=== PATIENT | male | born 1990 | race Caucasian/White ===

== ENCOUNTER 2018-03-23 23:07 | Emergency (ER) | payer MEDICAID ==
[2018-03-23 23:28] VITALS: BP 155/85; PULSE 75; RESP 16; TEMP 99.3; O2SAT 99
--- NOTE | 2018-03-23 23:35 | C.PDOC ---
History Of Present Illness 27-year-old male presents to the ED with complaints of pain near the outer left ear for the past week. Patient states he had a pimple there, his girlfriend stuck a needle in it, and some pus came out. Area is still swollen, painful, and hard, prompting him to come in for evaluation. Additionally, patient is complaining of right-sided hip and thigh pain, which he attributes to doing squats. Denies any fall or trauma. Pain worsens with ambulation or movement. Otherwise patient has no numbness, tingling, or weakness. Time Seen by Provider: 03/23/18 23:24 Chief Complaint (Nursing): ENT Problem History Per: Patient History/Exam Limitations: no limitations Onset/Duration Of Symptoms: Days Current Symptoms Are (Timing): Still Present Past Medical History Reviewed: Historical Data, Nursing Documentation, Vital Signs Vital Signs: Last Vital Signs Temp 99.3 F 03/23/18 23:24 Pulse 75 03/23/18 23:24 Resp 16 03/23/18 23:24 BP 155/85 H 03/23/18 23:24 Pulse Ox 99 03/23/18 23:35 - Medical History PMH: No Chronic Diseases Surgical History: No Surg Hx Family History: States: No Known Family Hx - Social History Hx Tobacco Use: Yes Hx Alcohol Use: No Hx Substance Use: No - Immunization History Hx Tetanus Toxoid Vaccination: Yes (2 years ago) Review Of Systems Except As Marked, All Systems Reviewed And Found Negative. Constitutional: Negative for: Fever, Chills ENT: Positive for: Other (pain to outer left ear). Negative for: Ear Discharge , Throat Pain Respiratory: Negative for: Shortness of Breath Musculoskeletal: Positive for: Leg Pain (right hip/outer thigh pain) Neurological: Negative for: Weakness, Numbness, Incoordination Physical Exam - Physical Exam Appears: Well, Non-toxic, No Acute Distress Skin: Warm, Dry, No Rash Head: Atraumatic, Normacephalic Eye(s): bilateral: Normal Inspection Ear(s): Left: Other (mildly tender, firm nodule to the left outer pinna, no fluctuance or erythema), Right: Normal Oral Mucosa: Moist Neck: Normal ROM Chest: Symmetrical Cardiovascular: Rhythm Regular, No Murmur Respiratory: Normal Breath Sounds, No Rales, No Rhonchi, No Wheezing Gastrointestinal/Abdominal: Soft, No Tenderness, No Distention Back: Normal Inspection, No Vertebral Tenderness, No Paraspinal Tenderness Male Genital: Normal Inspection, No Testicular Tenderness, No Testicular Swelling, Inguinal Tenderness (right-sided) Extremity: Normal ROM, Tenderness (to right inner thigh and inguinal area, no hip tenderness), No Deformity, No Swelling Neurological/Psych: Oriented x3, Normal Speech ED Course And Treatment O2 Sat by Pulse Oximetry: 99 (RA) Pulse Ox Interpretation: Normal Medical Decision Making Medical Decision Making: Impression: Right groin/thigh muscle strain, Nodule of left ear Dispo: Patient will be discharged home with cephalexin for the ear nodule, and motrin/flexeril for the muscle strain. Disposition Counseled Patient/Family Regarding: Diagnosis, Need For Followup, Rx Given - Disposition Referrals: Wilton Martinez MD [Staff Provider] - Don Porter MD [Staff Provider] - Disposition: HOME/ ROUTINE Disposition Time: 23:32 Condition: STABLE Additional Instructions: Take antibiotic for ear problem and follow up with ENT or derm for further care Take Motrin and Flexeril for your hip and muscle pain Follow up with your doctor if the pain persists Prescriptions: Cephalexin [cephalexin] 500 mg PO Q12 #14 cap Cyclobenzaprine [Cyclobenzaprine HCl] 10 mg PO TID #21 tab Ibuprofen [Motrin] 600 mg PO Q8 #30 tab Instructions: Hip Sprain (ED) Forms: [facility] (Hungarian) - POA Present On Arrival: None - Clinical Impression Clinical Impression: Muscle strain, Nodule of left external ear
== END 2018-03-24 00:05 | disposition home or self-care (01) ==
LOC: C.ER 23:07
DX: R22.0 Localized swelling, mass and lump, head (principal); S39.011A Strain of muscle, fascia and tendon of abdomen, initial encounter; S76.911A Strain of unspecified muscles, fascia and tendons at thigh level, right thigh, initial encounter; X50.0XXA Overexertion from strenuous movement or load, initial encounter; Y93.B9 Activity, other involving muscle strengthening exercises; Y92.9 Unspecified place or not applicable